=== PATIENT | female | born 1960 | race Caucasian/White ===

== ENCOUNTER → 2018-03-22 08:16 | Outpatient (CLI) | payer BC, SELFPAY ==
--- NOTE | 2018-03-22 08:18 | DI.MG.S_ITS ---
BILATERAL DIGITAL SCREENING MAMMOGRAM 3D/2D WITH CAD: 03/22/2018 CLINICAL: Routine screening. Family history of breast cancer. Comparison is made to exams dated: 08/13/2016 mammogram - [facility], 03/19/2010 mammogram, and [facility]/17/[facility] The tissue of both breasts is heterogeneously dense. This may lower the sensitivity of mammography. Current study was also evaluated with a Computer Aided Detection (CAD) system. There is a high density asymmetry in the left breast posterior depth lateral region seen on the craniocaudal view only. No other significant masses, calcifications, or other findings are seen in either breast. IMPRESSION: INCOMPLETE: NEEDS ADDITIONAL IMAGING EVALUATION The high density asymmetry in the left breast is indeterminate. Additional views with possible ultrasound are recommended. This exam was interpreted at Station ID: [id number]. NOTE: For mammograms, a report in lay terms will be sent to the patient. Approximately 15% of breast malignancies will not be visualized mammographically. In the management of a palpable breast mass, a negative mammogram must not discourage biopsy of a clinically suspicious lesion. Electronically Signed By: Isaura alford/rustam:03/22/2018 08:55:05 letter sent: Additional Imaging Needed ACR BI-RADS Category 0: Incomplete 3340F
== END ==
PROVIDERS: Family Provider Internal Medicine; PCP Internal Medicine; Visit Provider Internal Medicine
DX: Z12.31 Encounter for screening mammogram for malignant neoplasm of breast (principal); Z80.3 Family history of malignant neoplasm of breast
CPT/HCPCS: 77063; 77067

== ENCOUNTER → 2018-04-28 09:27 | Outpatient (CLI) | payer BC, SELFPAY ==
--- NOTE | 2018-04-28 09:29 | DI.MG.S_ITS ---
UNILATERAL LEFT DIGITAL DIAGNOSTIC MAMMOGRAM 3D/2D WITH ADDITIONAL VIEWS: 04/28/2018 CLINICAL: Additional evaluation requested from prior study. Family history of breast cancer. Comparison is made to exams dated: 03/22/2018 mammogram, 08/13/2016 mammogram - [facility], and 03/19/2010 [facility]. The tissue of the left breast is heterogeneously dense. This may lower the sensitivity of mammography. The high density asymmetry in the left breast posterior depth lateral region seen on the craniocaudal view only is not seen in additional views. No other significant masses or calcifications are seen in the breast. IMPRESSION: BENIGN The left breast asymmetry seen on the screening mammogram likely respresents superimposed fibroglandular tissue and is benign. There is no mammographic evidence of malignancy. A 1 year screening mammogram is recommended. This exam was interpreted at Station ID: [id number]. NOTE: For mammograms, a report in lay terms will be sent to the patient. Approximately 15% of breast malignancies will not be visualized mammographically. In the management of a palpable breast mass, a negative mammogram must not discourage biopsy of a clinically suspicious lesion. Electronically Signed By: Isaura Gonzales M.D. lk/:04/28/2018 10:04:51 letter sent: Normal Exam ACR BI-RADS Category 2: Benign Finding(s) 3342F
[2018-04-28 10:38] LABS: Add Manual Diff / Slide Review NO; Basophils Percent Auto 0.7 % (0-2); Eosinophils Percent Auto 4.2 % (2-4); Hematocrit 40.7 % (36-46); Hemoglobin 13.9 g/dL (12.0-16.0); Lymphocytes Percent Auto 27.2 % (25-40); Mean Corpuscular HGB Conc 34.2 % (30-36); Mean Corpuscular Volume 90.8 fL (80-100); Monocytes Percent Auto 11.4 % (3-14); Neutrophils Absolute Auto 3600 /uL (3000-5900); Neutrophils Percent Auto 56.5 % (50-75); Platelet Count 380 X10^3/uL (150-400); Red Blood Cell Count 4.48 X10^6/uL (4.0-5.2); Red Cell Distribution Width 13.8 % (11.6-14.8); White Blood Cell Count 6.4 X10^3/uL (4.5-11.0)
[2018-04-28 10:57] LABS: Alanine Aminotransferase 23 IU/L (9-52); Albumin 4.3 g/dL (3.5-5.0); Albumin Globulin Ratio 1.5 (1.0-2.8); Alkaline Phosphatase 59 U/L (38-126); Aspartate Aminotransferase 21 IU/L (14-36); BUN Creatinine Ratio 23.3 (6-22); Bilirubin Total 0.5 mg/dL (0.2-1.3); Blood Urea Nitrogen 14 mg/dL (7-17); Calcium 9.4 mg/dL (8.4-10.2); Carbon Dioxide 31 mmol/L (22-32); Chloride 103 mmol/L (98-107); Cholesterol 153 mg/dL (140-199); Estimated Glomerular Filt Rate > 60.0 mL/min (>60); Globulin 2.8 g/dL (1.7-4.1); Glucose 92 mg/dL (70-100); HDL Cholesterol 50 mg/dL (40-60); HEMOLYSIS < 15 (0-50); LDL Cholesterol Calculated 89 mg/dL (<100); Potassium 4.2 mmol/L (3.4-5.1); Sodium 143 mmol/L (137-145); Total Protein 7.1 g/dL (6.3-8.2); Triglycerides 68 mg/dL (35-150)
[2018-04-28 12:24] LABS: TSH w/ Reflex to FT4 2.06 uIU/mL (0.47-4.68)
== END ==
PROVIDERS: Family Provider Internal Medicine; PCP Internal Medicine; Visit Provider Internal Medicine
DX: R92.8 Other abnormal and inconclusive findings on diagnostic imaging of breast (principal); Z80.3 Family history of malignant neoplasm of breast; Z00.00 Encounter for general adult medical examination without abnormal findings
CPT/HCPCS: 36415; 77065; 80053; 80061; 84443; 85025; G0279

== ENCOUNTER → 2019-06-04 11:38 | Outpatient (CLI) | payer BC, SELFPAY ==
--- NOTE | 2019-06-04 | DI.MG.S_ITS ---
BILATERAL DIGITAL SCREENING MAMMOGRAM 3D/2D WITH CAD: 06/04/2019 CLINICAL: Routine screening. Family history of breast cancer. Comparison is made to exams dated: 03/22/2018 mammogram and 08/13/2016 mammogram - [facility]. The tissue of both breasts is heterogeneously dense. This may lower the sensitivity of mammography. Current study was also evaluated with a Computer Aided Detection (CAD) system. No significant masses, calcifications, or other findings are seen in either breast. There has been no significant interval change. IMPRESSION: NEGATIVE There is no mammographic evidence of malignancy. A 1 year screening mammogram is recommended. This exam was interpreted at Station ID: [id number]. NOTE: For mammograms, a report in lay terms will be sent to the patient. Approximately 15% of breast malignancies will not be visualized mammographically. In the management of a palpable breast mass, a negative mammogram must not discourage biopsy of a clinically suspicious lesion. Electronically Signed By: Reshma mirza/rustam:06/04/2019 17:12:42 letter sent: Normal Exam ACR BI-RADS Category 1: Negative 3341F
== END ==
PROVIDERS: PCP Internal Medicine; Visit Provider Internal Medicine
DX: Z12.31 Encounter for screening mammogram for malignant neoplasm of breast (principal); Z80.3 Family history of malignant neoplasm of breast
CPT/HCPCS: 77063; 77067

== ENCOUNTER → 2020-03-26 08:48 | Outpatient (CLI) | payer BC, SELFPAY ==
[2020-03-27 21:18] LABS: COVID19 Sendout Not Detected (Not Detect)
== END ==
PROVIDERS: PCP Internal Medicine; Visit Provider Nurse Practitioner
DX: Z11.59 Encounter for screening for other viral diseases (principal); R05 Cough
CPT/HCPCS: 87635

== ENCOUNTER → 2020-06-13 09:22 | Outpatient (CLI) | payer BC, SELFPAY ==
--- NOTE | 2020-06-13 | DI.MG.S_ITS ---
BILATERAL DIGITAL DIAGNOSTIC MAMMOGRAM 3D/2D: 06/13/2020 CLINICAL: Right breast itching. Comparison is made to exams dated: 06/04/2019 mammogram, 03/22/2018 mammogram, and 08/13/2016 mammogram - [facility]. The tissue of both breasts is heterogeneously dense. This may lower the sensitivity of mammography. No significant masses, calcifications, or other findings are seen in either breast. IMPRESSION: INCOMPLETE: NEEDS ADDITIONAL IMAGING EVALUATION There is no abnormality seen in the right breast to correspond with the area of clinical concern in the anterior depth, however, ultrasound is recommended. This exam was interpreted at Station ID: [id number]. NOTE: For mammograms, a report in lay terms will be sent to the patient. Approximately 15% of breast malignancies will not be visualized mammographically. In the management of a palpable breast mass, a negative mammogram must not discourage biopsy of a clinically suspicious lesion. Electronically Signed By: Payam north/rustam:06/13/2020 10:18:32 ACR BI-RADS Category 0: Incomplete 3340F
--- NOTE | 2020-06-13 | DI.US.S_ITS ---
LIMITED ULTRASOUND OF RIGHT BREAST: 06/13/2020 CLINICAL: Pt has itchy rt nipple for years , getting worse with time. Comparison is made to exams dated: 06/13/2020 mammogram, 06/04/2019 mammogram, and 04/28/2018 mammogram - [facility]. Real-time ultrasound of the right breast retroareolar was performed on the area of interest. No discrete cystic or solid mass lesion identified in the area of pruritus and skin changes in the anterior right breast. IMPRESSION: NEGATIVE There is no sonographic evidence of malignancy. There is no abnormality seen in the right breast to correspond with the area of clinical concern in the sub-areolar depth, however, clinical followup is recommended. A 1 year screening mammogram is recommended. This exam was interpreted at Station ID: [id number]. Electronically Signed By: Payam Denny M.D. ddconcepción/:06/13/2020 10:49:08 letter sent: Clinical Evaluation Ultrasound BI-RADS: 1 Negative
== END ==
PROVIDERS: PCP Internal Medicine; Referring Provider Internal Medicine; Visit Provider Internal Medicine
DX: R92.8 Other abnormal and inconclusive findings on diagnostic imaging of breast (principal); L29.8 Other pruritus
CPT/HCPCS: 76642; 77066; G0279

== ENCOUNTER → 2020-07-07 14:30 | Outpatient (CLI) | payer BC, SELFPAY ==
[2020-07-07 16:36] LABS: COVID19 -Nasal RAPID Negative (Negative)
== END ==
PROVIDERS: PCP Internal Medicine; Visit Provider Physician Assistant
DX: Z11.59 Encounter for screening for other viral diseases (principal)
CPT/HCPCS: 87635

== ENCOUNTER → 2020-07-08 15:03 | Outpatient (CLI) | payer BC, SELFPAY ==
--- NOTE | 2020-07-09 11:22 | DI.NM.S_ITS ---
DATE OF SERVICE: PROCEDURE: Exercise stress test. DATE: 09/07/2019 INDICATIONS: Chest pain and hypertension. EXERCISE TREADMILL TESTING: The patient underwent exercise stress test under the supervision of an attending staff. The patient walked on Holden protocol for 12 minutes and achieved 110% of target heart rate with normal blood pressure response. The patient achieved 12.8 METS of workload and functional aerobic impairment -73%. No chest pain or anginal symptoms. The patient finished the protocol. Baseline EKG revealed sinus rhythm. During stress, there were some nonspecific ST changes. However, no convincing ischemic changes. In early recovery patient has frequent PACs as well as some atrial couplets and very short run of SVT. No obvious atrial fibrillation seen. No ventricular tachycardia. CONCLUSION: Exercise stress test is negative for inducible ischemia. Excellent exercise tolerance. She walked on Holden protocol for 12 minutes with functional aerobic impairment -73%. PACs and short bursts of SVT during recovery without any obvious atrial fibrillation or sustained significant arrhythmias. Overall this is a low-risk exercise stress test. Cecy Dia - JOANN/adelina/pino doc#: [id number]/job#: [id number] dd: 07/08/2020 17:47:00 dt: 07/08/2020 18:14:00 DICTATING /COPIES TO: Desi Cid MD COPIES MNE: MIKAL;
== END ==
PROVIDERS: PCP Internal Medicine; Referring Provider Internal Medicine; Visit Provider Internal Medicine
DX: R07.9 Chest pain, unspecified (principal); I10 Essential (primary) hypertension
CPT/HCPCS: 93017

== ENCOUNTER → 2020-09-10 11:15 | Outpatient (CLI) | payer BC, SELFPAY ==
[2020-09-10 12:38] LABS: COVID19 -Nasal RAPID Negative (Negative)
== END ==
PROVIDERS: PCP Internal Medicine; Visit Provider Nurse Practitioner
DX: Z20.822 Contact with and (suspected) exposure to COVID-19 (principal)
CPT/HCPCS: 87635

== ENCOUNTER 2020-09-12 12:42 | Day surgery (SDC) | payer BC, SELFPAY ==
--- NOTE | 2020-09-12 11:54 | P.HP_ITS ---
History of Present Illness History of Present Illness Date Patient Seen: 09/12/20 Chief complaint: SCREENING COLONOSCOPY Narrative: 60 Years Old Female seen today for consideration of a screening colonoscopy. Last colonoscopy 2013, normal. There have been no lower GI symptoms suggesting disease such as change in bowel habits, bleeding, abdominal pain or anemia. There's been no family history of colon cancer or colon polyps. Overall health issues have been stable, including no major cardiac events for at least 6 weeks. 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 Pap: 2011 (Normal)- the patient denies any further vaginal exams or well exams Mammo: 2013 (normal)- BRCA testing negative The patient states she is not sexually active Colonoscopy: 2013 (normal) Past Surgical History: Breast lump biopsy (benign) 1998 - left side Colonoscopy, 2013, normal Family History: Reviewed history from 10/26/2019 and no changes required: Hypertension (father) Breast cancer and ovarian cancer (BRCA 1 positive: mother, sister, aunt, maternal grandmother) Stroke (MGM) Depression (sister) Family history of Melanoma Social History: 1 dog (Christi) No children non-drinker non-smoker Occupation: [employer] ([employer]) 2 drinks per day (1/2 bottle of wine per day) Alcohol drinks/day: 2/day Patient History Medical History (Updated 06/14/18 @ 15:01 by DAKOTA Angeles) Acne (~1969) Asthma (~1969) Cervical spine disease (~2013) Chicken pox (~1959) Eczema Family history of genetic disease Herpes (~1979) Mumps (~1959) Surgical History (Updated 01/21/18 @ 22:02 by Pina Lawton) Anesthesia Breast tumor (~1998) Family & Social History Family History (Updated 01/21/18 @ 21:59 by Pina Lawton) Grandfather No problems noted. Grandmother No problems noted. Mother No problems noted. Grandfather No problems noted. Grandmother No problems noted. Sister BRCA1 genetic carrier Sister BRCA1 genetic carrier Sister BRCA1 genetic carrier Cancer Tobacco & Substance use: Smoking Status Never smoker Meds Home Medications and Allergies Home Medications Medication Instructions Recorded Confirmed Type meloxicam 15 mg tablet 15 mg PO DAILY PRN #30 tab 01/23/18 09/12/20 Rx acyclovir 400 mg tablet 400 mg PO TID PRN #30 tab 03/21/18 09/12/20 Rx albuterol sulfate 90 mcg/actuation 2 puff INHALATION Q4H PRN #1 inh 06/05/18 09/12/20 Rx aerosol inhaler estradiol-levonorgestrel [Climara 1 patch TOPICAL WEEKLY 09/12/20 09/12/20 History Pro] Allergies Allergy/AdvReac Type Severity Reaction Status Date / Time egg [EGG] Allergy Mild ASTHMA Verified 03/26/20 08:55 aspirin AdvReac Mild Aspirin Verified 09/12/20 13:06 ibuprofen AdvReac Mild Asthma Verified 09/12/20 13:06 Review of Systems Review of Systems ROS: Yes All systems reviewed with the patient and are negative except as otherw ise documented Exam Narrative Exam Narrative: General: well developed, well nourished, in no acute distress, Head: normocephalic and atraumatic, Lungs: normal respiratory effort, clear bilaterally to auscultation, no wheezes rales or rhonchi. Heart: normal rate and regular rhythm, no murmurs, rubs, gallops, or clicks, Abdomen: abdomen soft and non-tender without masses, organomegaly, or abdominal wall hernias, bowel sounds positive. Skin: intact without suspicious lesions or rashes, Psych: alert and cooperative; normal mood and affect; normal attention span and concentration; cognition, remote and recent memory appear to be intact, Assessment & Plan Assessment & Plan narrative: 1. Screening for colon cancer Plan for colonoscopy. The nature and character of the procedure as well as anticipated results were discussed. The possibility of not completing the procedure was also discussed. Possible complications including aspiration pneumonia, bleeding, perforation and reaction to medications either for sedation or preparation and missed lesions were discussed. Questions were answered and proceeding to the colonoscopy was elected. Informed consent signed. I sincerely appreciate the referral allowing me to participate in this patient's care. Please contact me with any questions or concerns.
--- NOTE | 2020-09-12 11:55 | PM.OP.ENDO ---
Operative Date/Time/Diagnoses Date of procedure: 09/12/20 Procedure Notes Procedure in detail: ENDOSCOPIST: Shiela Cross MD Sedation RN: Freya Parikh RN Sedation start time: 2:06 p.m. Sedation end time: 2:33 p.m. PROCEDURE: Colonoscopy INDICATIONS: 1. Screening for colon cancer MEDICATION: Levsin 0.125 mg sublingual, incremental doses of Versed and fentanyl until appropriate level sedation achieved. ASA CLASS: 2 CECAL WITHDRAWAL TIME: 6 minutes COMPLICATIONS: None. EXTENT OF PROCEDURE: Cecum. QUALITY OF PREP: Good with portions of liquid stool. PROCEDURE: Prior to insertion of the colonoscope, a digital rectal examination was accomplished with circumferential palpation of the distal rectal mucosa without significant findings being noted. The high-definition colonoscope was passed into the rectum in the usual fashion and advanced over to the cecum without difficulty. The ileocecal valve, appendiceal stoma, and medial wall all could be inspected and no abnormalities were seen. ASCENDING COLON: As the colonoscope was withdrawn, care was taken to expose and inspect the haustral folds and no abnormalities were seen. HEPATIC FLEXURE: Normal, no polyps, diverticula or other abnormalities. TRANSVERSE COLON: Normal, no polyps, diverticula or other abnormalities. DESCENDING COLON: Normal, no polyps, diverticula or other abnormalities. SIGMOID COLON: Normal, no polyps, diverticula or other abnormalities. RECTUM: Normal. J maneuver was produced. There was no significant perianal disease. The J maneuver was broken. The remainder of the rectum was inspected and there was no external hemorrhoid disease. The scope was withdrawn. IMPRESSION: 1. Normal colonoscopy PLAN: 1. Repeat colonoscopy in 10 years. The possibility of a missed lesion including a malignancy has been discussed with the patient previously. Potential alarm symptoms have been discussed and should be reported immediately.
[2020-09-12 13:06] VITALS: BP 139/74; PULSE 75; RESP 14; TEMP 36.6; O2SAT 100
[2020-09-12] MEDS: HYOSCYAMINE 0.125 MG TABLET PO (13:09)
[2020-09-12] MEDS: LACTATED RINGERS 1,000 ML 200 ML IV (13:09)
[2020-09-12 13:20] VITALS: BMI 29.5
[2020-09-12] MEDS: fentaNYL 250 MCG/5 ML INJ IV (14:13)
[2020-09-12] MEDS: MIDAZOLAM 5 MG/5 ML VIAL IV (14:13)
[2020-09-12 14:37] VITALS: BP 118/63; PULSE 73; RESP 13; TEMP 36.4; O2SAT 99
[2020-09-12 14:41] VITALS: BP 113/65; PULSE 73; RESP 13; O2SAT 100
[2020-09-12 14:46] VITALS: BP 122/66; PULSE 63; RESP 14; O2SAT 100
[2020-09-12 14:59] VITALS: BP 116/70; PULSE 79; RESP 13; O2SAT 97
== END 2020-09-12 15:19 | disposition home or self-care (01) ==
PROVIDERS: PCP Internal Medicine; Referring Provider Internal Medicine; Visit Provider Student in an Organized Health Care Education/Training Program
PROC: 0DJD8ZZ Inspection of Lower Intestinal Tract, Via Natural or Artificial Opening Endoscopic (ICD-10-PCS; CPT 45378; principal; 2020-09-12 13:45)
DX: Z12.11 Encounter for screening for malignant neoplasm of colon (principal)
CPT/HCPCS: 45378; J2250; J3010

== ENCOUNTER → 2021-06-17 15:07 | Outpatient (CLI) | payer BC, SELFPAY ==
--- NOTE | 2021-06-17 15:07 | DI.MG.S_ITS ---
BILATERAL DIGITAL SCREENING MAMMOGRAM 3D/2D WITH CAD: 06/17/2021 CLINICAL: Routine screening. Family history of breast cancer. Comparison is made to exams dated: 06/13/2020 mammogram, 06/04/2019 mammogram, 04/28/2018 mammogram, and 03/22/2018 mammogram - [facility]. The tissue of both breasts is heterogeneously dense. This may lower the sensitivity of mammography. Current study was also evaluated with a Computer Aided Detection (CAD) system. No significant masses, calcifications, or other findings are seen in either breast. There has been no significant interval change. IMPRESSION: NEGATIVE There is no mammographic evidence of malignancy. A 1 year screening mammogram is recommended. This exam was interpreted at Station ID: [id number]. NOTE: For mammograms, a report in lay terms will be sent to the patient. Approximately 15% of breast malignancies will not be visualized mammographically. In the management of a palpable breast mass, a negative mammogram must not discourage biopsy of a clinically suspicious lesion. Electronically Signed By: Payam north/rustam:06/17/2021 16:04:08 letter sent: Normal Exam ACR BI-RADS Category 1: Negative 3341F
== END ==
PROVIDERS: PCP Internal Medicine; Referring Provider Internal Medicine; Visit Provider Internal Medicine
DX: Z12.31 Encounter for screening mammogram for malignant neoplasm of breast (principal); Z80.3 Family history of malignant neoplasm of breast
CPT/HCPCS: 77063; 77067

== ENCOUNTER → 2022-02-02 07:28 | Outpatient (CLI) | payer BC, SELFPAY ==
--- NOTE | 2022-02-02 | DI.NM.S_ITS ---
PROCEDURE: NM HIDA WITH CCK PHARMACEUTICAL: 5.2 mCi Tc-99m mebrofenin IV; 1.8 mcg CCK IV. INDICATIONS: Abdominal pain TECHNIQUE: Following intravenous administration of Tc-99m mebrofenin, sequential anterior abdominal images were obtained. To evaluate the contractile response of the gallbladder in response to Cholecystokinin (CCK), sincalide (0.02 ?g/kg) was administered by slow intravenous infusion approximately 60 minutes after the administration of the radiopharmaceutical. Sequential imaging was continued for 30 minutes after the start of CCK infusion. Gallbladder ejection fraction was calculated. COMPARISON: [facility], US, US ABDOMEN COMPLETE, 10/19/2021, 7:07. FINDINGS: Biliary scan: There is normal tracer uptake and excretion by the liver. There is normal visualization of the intrahepatic ducts, common bile duct, and gallbladder. There is normal tracer transit into the duodenum. CCK stimulation: There is poor contractile response of the gallbladder to CCK infusion. The calculated gallbladder ejection fraction is 30%; normal values are above 35%. The patient denied pain during CCK infusion. IMPRESSION: 1. Normal filling of gallbladder. No evidence for acute cholecystitis. 2. Poor contractile response of gallbladder to CCK stimulation. Dictated by: Miquel Madden M.D. on 02/02/2022 at 10:10 Approved by: Miquel Madden M.D. on 02/02/2022 at 10:15
== END ==
PROVIDERS: PCP Internal Medicine; Referring Provider Internal Medicine; Visit Provider Internal Medicine
DX: R10.9 Unspecified abdominal pain (principal)
CPT/HCPCS: 78227; A9537; J2805

== ENCOUNTER → 2022-07-29 08:30 | Outpatient (CLI) | payer BC, SELFPAY ==
--- NOTE | 2022-07-29 | DI.MG.S_ITS ---
BILATERAL DIGITAL SCREENING MAMMOGRAM 3D/2D WITH CAD: 07/29/2022 CLINICAL: Routine screening. Family history of breast cancer. Comparison is made to exams dated: 06/17/2021 mammogram, 06/13/2020 mammogram, and 06/04/2019 mammogram - [facility]. Both breasts are heterogeneously dense, which may obscure small masses (category c / 51-75% glandular tissue). Current study was also evaluated with a Computer Aided Detection (CAD) system. No significant masses, calcifications, or other findings are seen in either breast. There has been no significant interval change. IMPRESSION: NEGATIVE There is no mammographic evidence of malignancy. A 1 year screening mammogram is recommended. Based on Tyrer-Cuzick model (a risk assessment model), the patient's lifetime risk is 32.1% and her 10 year risk is 15.4%. If a patient has an elevated risk, a more comprehensive evaluation should be considered and/or a referral to a genetic counselor. The [place] [employer], [place] [employer], and NCCN Guidelines advise the consideration of Breast MRI as an adjunct to screening mammography in patients whose Lifetime risk to develop breast cancer is 20% or higher. This exam was interpreted at Station ID: [id number]. NOTE: For mammograms, a report in lay terms will be sent to the patient. Approximately 15% of breast malignancies will not be visualized mammographically. In the management of a palpable breast mass, a negative mammogram must not discourage biopsy of a clinically suspicious lesion. Electronically Signed By: Scott alvarez/rustam:07/29/2022 11:47:27 letter sent: Normal Exam ACR BI-RADS Category 1: Negative 3341F
== END ==
PROVIDERS: PCP Internal Medicine; Referring Provider Internal Medicine; Visit Provider Internal Medicine
DX: Z12.31 Encounter for screening mammogram for malignant neoplasm of breast (principal); Z80.3 Family history of malignant neoplasm of breast
CPT/HCPCS: 77063; 77067

== ENCOUNTER → 2022-07-30 14:18 | Outpatient (CLI) | payer BC, SELFPAY | PROVIDERS: PCP Internal Medicine; Referring Provider Internal Medicine; Visit Provider Internal Medicine | DX: Z13.820 Encounter for screening for osteoporosis (principal); Z78.0 Asymptomatic menopausal state | CPT/HCPCS: 77080 ==

== ENCOUNTER 2023-07-09 10:04 | Emergency (ER) | payer BC, SELFPAY ==
[2023-07-09] VITALS (12 sets, daily range): BP systolic 146–176; BP diastolic 72–86; PULSE 60–83; RESP 11–24; TEMP 36.6–36.8; O2SAT 96–99; BMI 31.6
--- NOTE | 2023-07-09 10:27 | DI.RAD.S_ITS ---
PROCEDURE: XR CHEST 1V INDICATIONS: chest pain TECHNIQUE: One view of the chest was acquired. COMPARISON: None. FINDINGS: Surgical changes and devices: None. Lungs and pleura: Linear scarring/atelectasis at left lung base is seen. No pleural effusions or pneumothorax. Mediastinum: Mediastinal contours appear normal. Heart size is normal. Bones and chest wall: No suspicious bony lesions. Overlying soft tissues appear unremarkable. IMPRESSION: Left basilar scarring/atelectasis. No focal infiltrate, pleural effusion or pneumothorax. Dictated by: Joe Kan M.D. on 07/09/2023 at 11:15 Approved by: Joe Kan M.D. on 07/09/2023 at 11:16
[2023-07-09 10:40] LABS: INR 1.1 (0.9-1.3); Prothrombin Time 12.2 SECONDS (9.4-12.5)
[2023-07-09 10:42] LABS: PTT Partial Thromboplastin Tim 31 SECONDS (25.1-36.5)
[2023-07-09 10:43] LABS: Alanine Aminotransferase 22 IU/L (<35); Albumin 4.3 g/dL (3.5-5.0); Albumin Globulin Ratio 1.4 (1.0-2.8); Alkaline Phosphatase 55 U/L (38-126); Aspartate Aminotransferase 29 IU/L (14-36); BUN Creatinine Ratio 27.7 (6-22); Bilirubin Total 0.8 mg/dL (0.2-1.3); Blood Urea Nitrogen 18 mg/dL (7-17); Calcium 10.1 mg/dL (8.4-10.2); Carbon Dioxide 29 mmol/L (22-32); Chloride 100 mmol/L (98-107); Creatine Kinase 105 U/L (30-135); Estimated Glomerular Filt Rate > 60 mL/min (>60); Globulin 3.1 g/dL (1.7-4.1); Glucose 107 mg/dL (80-110); HEMOLYSIS < 15 (0-50); Lipase 60 U/L (23-300); Magnesium 1.8 mg/dL (1.6-2.3); Potassium 3.8 mmol/L (3.4-5.1); Sodium 134 mmol/L (137-145); Total Protein 7.4 g/dL (6.3-8.2)
[2023-07-09 10:44] LABS: Add Manual Diff / Slide Review NO; Basophils Absolute Auto 100 /uL (0-100); Eosinophils Absolute Auto 200 /uL (0-450); Eosinophils Percent Auto 3.1 % (2-4); Hematocrit 41.3 % (36-46); Hemoglobin 13.9 g/dL (12.0-16.0); Lymphocytes Absolute Auto 2200 /uL (1100-4500); Lymphocytes Percent Auto 30.1 % (25-40); Mean Corpuscular HGB Conc 33.7 % (30-36); Mean Corpuscular Hemoglobin 30.9 PG (26-34); Mean Corpuscular Volume 91.7 fL (80-100); Monocytes Absolute Auto 900 /uL (0-900); Monocytes Percent Auto 12.8 % (3-14); Neutrophils Absolute Auto 3800 /uL (1500-7000); Platelet Count 346 X10^3/uL (150-400); Red Cell Distribution Width 13.8 % (11.6-14.8); White Blood Cell Count 7.2 X10^3/uL (4.5-11.0)
[2023-07-09 10:55] LABS: Troponin I < 0.012 ng/mL (0.01-0.034)
--- NOTE | 2023-07-09 11:13 | ED.CHESTPAIN ---
HPI - Chest Pain General Chief Complaint: Chest Pain Stated Complaint: sent by [facility]/ chest pains Time Seen by Provider: 07/09/23 11:12 Source: patient, RN notes reviewed and old records reviewed Mode of arrival: Ambulatory Limitations: no limitations History of Present Illness HPI narrative: 63-year-old female with history of hypertension, herpes, asthma, GERD with complaint of chest pain/pressure for the last several days. Patient comes in with complaint of substernal chest pressure that has been for several days but occasionally radiates over the left side of the chest to the shoulder. She states did have a little bit to her back. None to her neck and her belly. No syncope, no passing out or lightheadedness, she states she does have a history of reflux which is typically substernal but does not radiate elsewhere and states this is different. Denies any diaphoresis. No shortness of breath, no nausea no vomiting, no changes to bowel movements, no changes with urination, no new swelling in extremities in the feet. No fevers or chills. No cold, cough or congestion. Patient states she is on 25 mg of losartan daily, acyclovir as needed, Ventolin as needed she states she has not felt tight or wheezy your needed it, takes meloxicam PRN. Patient notes she does have an estrogen patch. Also notes that she flew back from [place] about 2 or 3 weeks ago after traveling. Denies any prior surgeries. States has allergic used to NSAIDs can tolerate some but not all. No tobacco, had quite a few alcoholic drinks on but states imbibes socially on the holidays otherwise not regularly. Occasional THC edibles, no IV or other recreational drugs. Her primary care is Dr. Murillo. Related Data Home Medications Medication Instructions Recorded Confirmed estradiol 0.045 mg-levonorgestrel 1 patch topical WEEKLY 09/12/20 07/09/23 0.015 mg/24hr weekly transderm patch (Climara Pro) estradiol 0.01% (0.1 mg/gram) 1 g vaginal 2XW 07/09/23 07/09/23 vaginal cream losartan 25 mg tablet 25 mg PO DAILY 07/09/23 07/09/23 Previous Rx's Medication Instructions Recorded meloxicam 15 mg tablet 15 mg PO DAILY PRN pain #30 tabs 01/23/18 acyclovir 400 mg tablet 400 mg PO TID PRN herpes #30 tabs 03/21/18 albuterol sulfate 90 mcg/actuation 2 puff inhalation Q4H PRN 06/05/18 aerosol inhaler (Ventolin HFA) shortness of breath or wheezing #1 inh Allergies Allergy/AdvReac Type Severity Reaction Status Date / Time egg [EGG] Allergy Mild ASTHMA Verified 07/09/23 09:51 naproxen AdvReac Severe Wheezing Verified 07/09/23 09:51 aspirin AdvReac Mild Aspirin Verified 07/09/23 09:51 ibuprofen AdvReac Mild Asthma Verified 07/09/23 09:51 Review of Systems Review of Systems ROS Unobtainable: All systems reviewed & are unremarkable except as noted in HPI and below Patient History Medical History Asthma (~1969) Cervical spine disease (~2013) Eczema Acne (~1969) Mumps (~1959) Chicken pox (~1959) Herpes (~1979) Family history of genetic disease Surgical History Anesthesia Breast tumor (~1998) Family History Grandfather No problems noted. Grandmother No problems noted. Mother No problems noted. Grandfather No problems noted. Grandmother No problems noted. Sister BRCA1 genetic carrier Sister BRCA1 genetic carrier Sister BRCA1 genetic carrier Cancer Social History household members: none Smoking Status: Never smoker Smoking Status: Never smoker alcohol intake frequency: a few times a week Substance Use Type: does not use Exam Narrative Exam Narrative: GENERAL: Alert and oriented x three, female in mild distress. HEENT: Head normocephalic, atraumatic, EOMI, pupils reactive, face symmetric, moist mucous membranes NECK: Supple, full range of motion CARDIOVASCULAR: Regular rate and rhythm without murmurs, rubs or gallops. No JVD. No swelling bilateral lower extremities. No reproducible chest pain. No rash or skin changes. RESPIRATORY: Breath sounds equal bilaterally, no wheezes rales or rhonchi. No tachypnea accessory muscle use. ABDOMEN: Soft, nontender. Normoactive bowel sounds all 4 quadrants. No guarding or rebound, rigidity, no mass : No CVA tenderness EXTREMITIES: Normal range of motion, no clubbing or edema. 2+ pulses bilateral lower extremities. Neurovascularly intact NEUROLOGICAL: Cranial nerves II through XII grossly intact. Moving all extremities SKIN: Warm, dry, no petechiae, no rashes or lesions. Initial Vital Signs Initial Vital Signs: Vital Signs Pulse Rate 80 07/09/23 10:22 Respiratory Rate 15 07/09/23 10:22 Blood Pressure 176/86 H 07/09/23 10:22 Pulse Oximetry 99 07/09/23 10:22 Scores HEART Score Heart Score history: Moderately Suspicious Heart Score EKG: Normal Heart Score Age: 45-64 years old Heart Score risk factors: 1-2 risk factors Heart Score troponin: < or = to normal limit Heart Score Total: 3 PERC Score Age greater than or equal to 50 years: Yes Heart rate greater than or equal to 100 bpm: No Room Air O2 Sat less than 95%: No Unilateral leg swelling: No Recent trauma or surgery: No Hemoptysis: No Prior PE or DVT: No Hormone Use: Yes (topical not oral.) Total PERC Score: 2 Course Orders Ordered: ED Orders 07/09/23 10:26 Complete Blood Count AUTO DIFF Stat Comprehensive Metabolic Panel Stat D Dimer Stat Lipase Stat Magnesium Stat PTT Partial Thromboplastin Jean Stat Prothrombin Time INR Stat Troponin & CK Cardiac Panel Stat 07/09/23 10:27 XR chest 1V Stat 07/09/23 10:40 EKG-12 Lead Stat 07/09/23 12:25 Trop I [Troponin I] Stat 07/09/23 12:31 EKG-12 Lead Stat Vital Signs Vital signs: Vital Signs - 8 hr 07/09/23 10:22 07/09/23 10:22 07/09/23 10:28 Temperature 97.8 F Pulse Rate 80 74 Respiratory Rate 15 16 Blood Pressure 176/86 H 161/82 H Pulse Oximetry 99 99 Oxygen Delivery Method Room Air 07/09/23 10:30 07/09/23 10:30 07/09/23 11:00 Temperature Pulse Rate 77 Respiratory Rate 11 L Blood Pressure 161/82 H 171/84 H Pulse Oximetry 99 Oxygen Delivery Method 07/09/23 11:00 07/09/23 11:30 07/09/23 11:31 Temperature Pulse Rate 83 69 Respiratory Rate 20 19 Blood Pressure 158/82 H Pulse Oximetry 99 99 Oxygen Delivery Method 07/09/23 11:31 07/09/23 11:45 07/09/23 11:45 Temperature Pulse Rate 77 65 Respiratory Rate 19 13 Blood Pressure 161/72 H Pulse Oximetry 98 96 Oxygen Delivery Method 07/09/23 12:00 07/09/23 12:00 07/09/23 12:30 Temperature Pulse Rate 60 62 Respiratory Rate 24 21 Blood Pressure 161/77 H Pulse Oximetry 98 98 Oxygen Delivery Method 07/09/23 12:31 07/09/23 12:31 07/09/23 13:00 Temperature Pulse Rate 70 65 Respiratory Rate 18 20 Blood Pressure 146/76 H Pulse Oximetry 97 98 Oxygen Delivery Method 07/09/23 13:00 07/09/23 13:12 Temperature 98.2 F Pulse Rate Respiratory Rate Blood Pressure 162/76 H Pulse Oximetry Oxygen Delivery Method MDM - Chest Pain Lab Data 07/09/23 10:26 07/09/23 10:26 Labs: Lab Results 07/09/23 07/09/23 Range/Units 10:26 12:25 WBC 7.2 (4.5-11.0) X10^3/uL RBC 4.50 (4.0-5.2) X10^6/uL Hgb 13.9 (12.0-16.0) g/dL Hct 41.3 (36-46) % MCV 91.7 (80-100) fL MCH 30.9 (26-34) PG MCHC 33.7 (30-36) % RDW 13.8 (11.6-14.8) % Plt Count 346 (150-400) X10^3/uL Neut % (Auto) 53.0 (50-75) % Lymph % (Auto) 30.1 (25-40) % Story % (Auto) 12.8 (3-14) % Eos % (Auto) 3.1 (2-4) % Baso % (Auto) 1.0 (0-2) % Neut # (Auto) 3800 (0072-5281) /uL Lymph # (Auto) 2200 (6936-4278) /uL Story # (Auto) 900 (0-900) /uL Eos # (Auto) 200 (0-450) /uL Baso # (Auto) 100 (0-100) /uL PT 12.2 (9.4-12.5) SECONDS INR 1.1 (0.9-1.3) APTT 31 (25.1-36.5) SECONDS D-Dimer 393 (<500) ng/ml Sodium 134 L (137-145) mmol/L Potassium 3.8 (3.4-5.1) mmol/L Chloride 100 (98-107) mmol/L Carbon Dioxide 29 (22-32) mmol/L BUN 18 H (7-17) mg/dL Creatinine 0.65 (0.52-1.04) mg/dL Estimated GFR > 60 (>60) mL/min BUN/Creatinine Ratio 27.7 H (6-22) Glucose 107 (80-110) mg/dL Calcium 10.1 (8.4-10.2) mg/dL Magnesium 1.8 (1.6-2.3) mg/dL Total Bilirubin 0.8 (0.2-1.3) mg/dL AST 29 (14-36) IU/L ALT 22 (<35) IU/L Alkaline Phosphatase 55 (38-126) U/L Total Creatine Kinase 105 (30-135) U/L Troponin I < 0.012 < 0.012 (0.01-0.034) ng/mL Total Protein 7.4 (6.3-8.2) g/dL Albumin 4.3 (3.5-5.0) g/dL Globulin 3.1 (1.7-4.1) g/dL Albumin/Globulin Ratio 1.4 (1.0-2.8) Lipase 60 (23-300) U/L Imaging Data Chest x-ray: Radiologist's Impression: Close Chest X-Ray (Signed) Joe Kan - 07/09/23 DEXA Result 07/30/22 Bone Densitometry 07/30/22 Mammogram Screening (Signed) Scott Eduardo - 07/29/22 Hepatobiliary Scan Nuclear Medicine (Signed) Shelley Madden - 02/02/22 Mammogram Screening (Signed) Payam Denny - 06/17/21 Telemetry Strips 09/12/20 Radiology Report (Cancelled) Desi Cid - 07/09/20 Mammogram Diagnostic (Signed) Payam Denny - 06/13/20 Breast Ultrasound (Signed) Payam Denny - 06/13/20 Mammogram Screening (Signed) Reshma Barnett - 06/04/19 Mammogram, Additional Views (Signed) Isaura Gonzales - 04/28/18 Mammogram Screening (Signed) Isaura Gonzales - 03/22/18 DI Result CC 07/19/17 Launch?[address] [address] XRay Report Signed Patient: Cecy Dia MR#: [id number] : 1960 Acct:[id number] Age/Sex: 63 / F Date of Service: 07/09/23 Loc: ED Accession Number: [id number] Procedure: XR chest 1V Ordering Provider: Selena Keller D.O. PROCEDURE: XR CHEST 1V INDICATIONS: chest pain TECHNIQUE: One view of the chest was acquired. COMPARISON: None. FINDINGS: Surgical changes and devices: None. Lungs and pleura: Linear scarring/atelectasis at left lung base is seen. No pleural effusions or pneumothorax. Mediastinum: Mediastinal contours appear normal. Heart size is normal. Bones and chest wall: No suspicious bony lesions. Overlying soft tissues appear unremarkable. IMPRESSION: Left basilar scarring/atelectasis. No focal infiltrate, pleural effusion or pneumothorax. Dictated by: Joe Kan M.D. on 07/09/2023 at 11:15 Approved by: Joe Kan M.D. on 07/09/2023 at 11:16 ECG Data Attestation: I personally reviewed and interpreted this ECG as follows: Prior ECG tracings: not available for review Interpretation: Sinus rhythm premature atrial complex, rate of 79 MA 136 QRS 84 QTC 442. No acute ST elevation or depression. No priors for comparison. EKG 2., sinus rhythm premature atrial complex, rate of 69 MA 144 QRS is 78 QTC 452. No acute ST changes or depression. MDM Narrative Medical decision making narrative: 63-year-old with history of hypertension, asthma with chest pain for several days to the left shoulder. Does have a history of reflux. CBC, CMP, coags, LFTs and troponin are negative. Repeat troponin is negative as well. Chest x-ray shows some left basilar atelectasis/scarring. Patient did have some long distance travel D-dimer is negative. She does not have any other risk factors prompting for CT angio at this time. Patient states she is currently asymptomatic with no acute or dynamic EKG changes appreciated. Patient felt safe for disposition home with follow-up. Discussed return precautions. Discharge Plan Departure Patient Disposition: Home Clinical Impression: Chest pain Instructions: DI for Chest Pain Activity Restrictions/Additional Instructions: Follow-up with your physician for recheck and further workup as needed. Call to set up an appointment on Tuesday. Continue your home medications as prescribed. Please return for new or worsening chest pain or pressure, shortness of breath, sweatiness, lightheadedness or passing out, nausea or vomiting, new swelling in her extremities or other new or concerning changes. Prescriptions: No Action estradiol 0.01 % (0.1 mg/gram) cream 1 g vaginal 2XW losartan 25 mg tablet 25 mg PO DAILY acyclovir 400 mg tablet 400 mg PO TID PRN (Reason: herpes) Qty: 30 2RF albuterol sulfate [Ventolin HFA] 90 mcg/actuation HFA aerosol inhaler 2 puff INHALATION Q4H PRN (Reason: shortness of breath or wheezing) Qty: 1 3RF meloxicam 15 mg tablet 15 mg PO DAILY PRN (Reason: pain) Qty: 30 0RF Climara Pro 0.045-0.015 mg/24 hr patch weekly 1 patch topical WEEKLY Referrals: Stephie Murillo ARNP [Primary Care Provider] - Stand Alone Forms: Patient Portal/API
[2023-07-09 11:39] LABS: D Dimer 393 ng/ml (<500)
[2023-07-09 12:55] LABS: Troponin I < 0.012 ng/mL (0.01-0.034)
== END 2023-07-09 13:13 | disposition home or self-care (01) ==
PROVIDERS: Emergency Provider Emergency Medicine; PCP Internal Medicine
DX: R07.9 Chest pain, unspecified (principal); I49.1 Atrial premature depolarization
CPT/HCPCS: 36415; 71045; 80053; 82550; 83690; 83735; 84484; 85025; 85379; 85610; 85730; 93005; 93010; 99284

== ENCOUNTER → 2023-08-01 15:24 | Outpatient (CLI) | payer BC, SELFPAY ==
--- NOTE | 2023-08-01 | DI.MG.S_ITS ---
BILATERAL DIGITAL SCREENING MAMMOGRAM 3D/2D WITH CAD: 08/01/2023 CLINICAL: Routine screening. Family history of breast cancer. Comparison is made to exams dated: 07/29/2022 mammogram, 06/17/2021 mammogram, and 06/13/2020 [facility]. Both breasts are heterogeneously dense, which may obscure small masses (category c / 51-75% glandular tissue). Current study was also evaluated with a Computer Aided Detection (CAD) system. No significant masses, calcifications, or other findings are seen in either breast. There has been no significant interval change. IMPRESSION: NEGATIVE There is no mammographic evidence of malignancy. A 1 year screening mammogram is recommended. Based on Tyrer-Cuzick model (a risk assessment model), the patient's lifetime risk is 30.2% and her 10 year risk is 14.5%. If a patient has an elevated risk, a more comprehensive evaluation should be considered and/or a referral to a genetic counselor. The [place] [employer], [place] [employer], and NCCN Guidelines advise the consideration of Breast MRI as an adjunct to screening mammography in patients whose Lifetime risk to develop breast cancer is 20% or higher. This exam was interpreted at Station ID: [id number]. NOTE: For mammograms, a report in lay terms will be sent to the patient. Approximately 15% of breast malignancies will not be visualized mammographically. In the management of a palpable breast mass, a negative mammogram must not discourage biopsy of a clinically suspicious lesion. Electronically Signed By: Wili magaña/rustam:08/02/2023 07:36:06 letter sent: Normal Exam ACR BI-RADS Category 1: Negative [id number]
== END ==
PROVIDERS: PCP Internal Medicine; Referring Provider Internal Medicine; Visit Provider Internal Medicine
DX: Z12.31 Encounter for screening mammogram for malignant neoplasm of breast (principal); Z80.3 Family history of malignant neoplasm of breast
CPT/HCPCS: 77063; 77067

== ENCOUNTER → 2023-08-07 10:47 | Outpatient (CLI) | payer BC, SELFPAY | PROVIDERS: PCP Internal Medicine; Visit Provider Nurse Practitioner Family | DX: R31.9 Hematuria, unspecified (principal) | CPT/HCPCS: 87086 ==

== ENCOUNTER → 2024-10-01 | Outpatient (CLI) | payer BC, SELFPAY ==
--- NOTE | 2024-10-01 14:54 | DI.MG.S_ITS ---
BILATERAL DIGITAL SCREENING MAMMOGRAM 3D/2D WITH CAD: 10/01/2024 CLINICAL: Routine screening. Family history of breast cancer. Comparison is made to exams dated: 08/01/2023 mammogram, 07/29/2022 mammogram, and 06/17/2021 mammogram - [facility]. The breasts are heterogeneously dense, which may obscure small masses (category c / 51-75% glandular tissue). Current study was also evaluated with a Computer Aided Detection (CAD) system. No significant masses, calcifications, or other findings are seen in either breast. There has been no significant interval change. IMPRESSION: NEGATIVE There is no mammographic evidence of malignancy. A 1 year screening mammogram is recommended. Based on Tyrer-Cuzick model (a risk assessment model), the patient's lifetime risk is 29.2% and her 10 year risk is 14.5%. If a patient has an elevated risk, a more comprehensive evaluation should be considered and/or a referral to a genetic counselor. The [place] [employer], [employer] [place] [employer], and NCCN Guidelines advise the consideration of Breast MRI as an adjunct to screening mammography in patients whose Lifetime risk to develop breast cancer is 20% or higher. This exam was interpreted at Station ID: [id number]. NOTE: For mammograms, a report in lay terms will be sent to the patient. Approximately 15% of breast malignancies will not be visualized mammographically. In the management of a palpable breast mass, a negative mammogram must not discourage biopsy of a clinically suspicious lesion. Electronically Signed By: Wili magaña/rustam:10/02/2024 06:49:55 letter sent: Normal Exam ACR BI-RADS Category 1: Negative
== END ==
LOC: MAMMO 14:53
PROVIDERS: PCP Internal Medicine; Referring Provider Internal Medicine; Visit Provider Internal Medicine
DX: Z12.31 Encounter for screening mammogram for malignant neoplasm of breast (principal); Z80.3 Family history of malignant neoplasm of breast; R92.333 Mammographic heterogeneous density, bilateral breasts
CPT/HCPCS: 77063; 77067

== ENCOUNTER → 2024-10-15 12:00 | Outpatient (CLI) | payer BC, SELFPAY ==
--- NOTE | 2024-10-15 12:05 | DI.RAD.S_ITS ---
PROCEDURE: XR SHOULDER LT MIN 2V INDICATIONS: Pain in left shoulder TECHNIQUE: 3 views of the shoulder were acquired. COMPARISON: None. FINDINGS: Bones: No fractures or dislocations. There is moderate glenohumeral joint space narrowing with marginal osteophytosis. Advanced hypertrophic acromioclavicular arthropathy and joint space narrowing noted. No suspicious bony lesions. Visualized ribs appear intact. Soft tissues: No suspicious soft tissue calcifications. IMPRESSION: Degenerative change of the glenohumeral and acromioclavicular joints without evidence of acute osseous abnormality. Dictated by: Juancarlos Maurice M.D. on 10/16/2024 at 5:16 Approved by: Juancarlos Maurice M.D. on 10/16/2024 at 5:17
== END ==
PROVIDERS: PCP Internal Medicine; Referring Provider Emergency Medicine Sports Medicine; Visit Provider Emergency Medicine Sports Medicine
DX: M25.512 Pain in left shoulder (principal); G89.29 Other chronic pain
CPT/HCPCS: 73030

== ENCOUNTER → 2025-05-15 10:43 | Outpatient (CLI) | payer MEDICARE, BC, SELFPAY ==
--- NOTE | 2025-05-15 | DI.RAD.S_ITS ---
PROCEDURE: XR LUMBAR SPINE 2-3V INDICATIONS: PAIN TECHNIQUE: 3 views of the lumbar spine were acquired. COMPARISON: None. FINDINGS: Lumbar spine curvature and alignment: Mild dextroscoliotic curve lower thoracic and lumbar spine appreciated. Bones: Minimal chronic wedging of the visualized lower thoracic vertebral bodies T9 through L1 appreciated. Disc spaces: Mild degenerative disc disease T9-10 through through L2-3 with moderate L3-4 mild L4-5 and L5-S1 degenerative disc disease. There is moderate L5-S1 degenerative facet disease. Soft tissues: No soft tissue swelling, calcification or mass. IMPRESSION: Degeneration Minimal chronic wedging T9 through L1 vertebral bodies. Suspect osteoporosis. Consider repeat DEXA scan Dictated by: Bhupendra Devries M.D. on 05/16/2025 at 13:42 Approved by: Bhupendra Devries M.D. on 05/16/2025 at 13:44
--- NOTE | 2025-05-15 | DI.RAD.S_ITS ---
PROCEDURE: XR HIP W PEL IF DONE RT 2V INDICATIONS: PAIN TECHNIQUE: Two views of the hip were acquired. COMPARISON: [facility], CR, HIPBILAT 3TO4V W PEL IF PERFD, 01/05/2016, 9:35. FINDINGS: Bones: There are no osseous abnormalities. SI and hip joints: Normal in width and alignment without arthritic change Soft tissues: No soft tissue swelling, calcification or mass. IMPRESSION: Normal pelvis Dictated by: Bhupendra Devries M.D. on 05/16/2025 at 13:42 Approved by: Bhupendra Devries M.D. on 05/16/2025 at 13:42
== END ==
PROVIDERS: PCP Registered Nurse; Referring Provider Registered Nurse; Visit Provider Registered Nurse
DX: M51.34 Other intervertebral disc degeneration, thoracic region (principal); M25.551 Pain in right hip; M51.369 Other intervertebral disc degeneration, lumbar region without mention of lumbar back pain or lower extremity pain; M51.379 Other intervertebral disc degeneration, lumbosacral region without mention of lumbar back pain or lower extremity pain; M47.817 Spondylosis without myelopathy or radiculopathy, lumbosacral region
CPT/HCPCS: 72100; 73502

== ENCOUNTER → 2025-07-03 12:07 | Outpatient (CLI) | payer MEDICARE, BC, SELFPAY ==
--- NOTE | 2025-07-03 12:09 | DI.RAD.S_ITS ---
PROCEDURE: XR DEXA AXIAL SKELETON INDICATIONS: Osteoporosis Screening COMPARISON: [facility], CR, XR DEXA AXIAL SKELETON, 07/30/2022, 14:33. FINDINGS: Lumbar Spine: Bone mineral density 1.060 g/cm2, T score 0.1, normal, change from previous 1.2%. Left Femoral Neck: Bone mineral density 0.786 g/cm2, T score -0.6, normal, change from previous 1.8%. Left Hip: Bone mineral density 1.019 g/cm2, T score 0.6, normal, change from previous-0.4%. Fracture Risk Calculation (when applicable): 10-year fracture risk of a major osteoporotic fracture 7.4 percent and of a hip fracture 0.4 percent. (T score greater or equal to -1.0 to: NORMAL) (T score from -1.1 to -2.4: OSTEOPENIA) (T score less than or equal to -2.5: OSTEOPOROSIS) IMPRESSION: Normal bone mineral density; no elevated fracture risk. No significant changes in bone mineral density compared to prior. Follow-up guidelines as follows: Osteoporosis: Consider a repeat DEXA and Vertebral Fracture Assessment (VFA) exam in 2 years or sooner if medically necessary, to reassess this patient's status. Osteopenia: Consider a repeat DEXA in 2-3 years to reassess this patient's status, or if there is a new clinical indication. Normal: Consider a repeat DEXA in 5 years or sooner, or if there is a new clinical indication. All treatment decisions require clinical judgment and consideration of individual patient factors, including patient preferences, comorbidities, previous drug use, risk factors not captured in the FRAX model (e.g., frailty, falls, vitamin D deficiency, increased bone turnover, interval significant decline in bone density ) and possible under- or over-estimation of fracture risk by FRAX. In addition, the NOF Guide recommends that FDA-approved medical therapies be considered in postmenopausal women and men age >= 50 years with a: * Hip or vertebral (clinical or morphometric) fracture * T-score of <=-2.5 at the spine or hip * Ten-year fracture probability by FRAX of >= 3% for hip fracture or >=20% for major osteoporotic fracture. Dictated by: Reshma Barnett M.D. on 07/05/2025 at 22:34 Approved by: Reshma Barnett M.D. on 07/05/2025 at 22:35
== END ==
LOC: RAD 12:08
PROVIDERS: PCP Registered Nurse; Referring Provider Registered Nurse; Visit Provider Registered Nurse
DX: Z13.820 Encounter for screening for osteoporosis (principal); R93.7 Abnormal findings on diagnostic imaging of other parts of musculoskeletal system; Z78.0 Asymptomatic menopausal state
CPT/HCPCS: 77080

== ENCOUNTER → 2025-07-17 09:47 | Outpatient (CLI) | payer MEDICARE, BC, SELFPAY ==
--- NOTE | 2025-07-17 09:54 | DI.RAD.S_ITS ---
PROCEDURE: XR KNEE LT 3V INDICATIONS: Right Knee PAIN TECHNIQUE: 3 views of the knee were acquired. COMPARISON: None. FINDINGS: Bones: No fractures or dislocations. No suspicious bony lesions. Soft tissues: No joint effusion. No suspicious soft tissue calcifications. IMPRESSION: No acute bony abnormality or significant effusion. Dictated by: Jamaal Hayes M.D. on 07/17/2025 at 10:52 Approved by: Jamaal Hayes M.D. on 07/17/2025 at 10:52
== END ==
PROVIDERS: PCP Registered Nurse; Referring Provider Registered Nurse; Visit Provider Registered Nurse
DX: S83.8X2D Sprain of other specified parts of left knee, subsequent encounter (principal); X58.XXXD Exposure to other specified factors, subsequent encounter
CPT/HCPCS: 73562

== ENCOUNTER → 2025-07-21 15:42 | Outpatient (CLI) | payer MEDICARE, BC, SELFPAY ==
--- NOTE | 2025-07-21 15:44 | DI.MRI.S_ITS ---
PROCEDURE: MR THORACIC SPINE WO CON INDICATIONS: Pain TECHNIQUE: Noncontrast sagittal T1 spine echo and T2 fast spin echo, sagittal STIR, and T2 fast spin echo through the thoracic spine. COMPARISON: None. FINDINGS: Image quality: Excellent. Some images are limited by patient motion or other artifacts. Left T6-7, T7-8 and most notably T8-9 left-sided foraminal, perineural cysts the largest measuring up to 1.5 cm diameter. Similarly at T10-T11 on the right side 1.2 cm. Moderate degenerative changes throughout the thoracic spine with degenerative disc disease, osteophytes, costovertebral and facet hypertrophic changes without central stenosis. No MR evidence of fracture or subluxation. No abnormal bone edema. No focal osseous lesion. Incidental note is made of multiple bilateral renal cyst partially imaged on this thoracic spine exam the largest on the right measuring up to 3.2 cm no gross hydronephrosis. Descending aorta within normal limits in size. IMPRESSION: Degenerative changes as discussed above. Bilateral foraminal, perineural cysts. Dictated by: Toby Garcia M.D. on 07/24/2025 at 9:10 Approved by: Toby Garcia M.D. on 07/24/2025 at 9:28
== END ==
LOC: MRI 15:43
PROVIDERS: PCP Registered Nurse; Referring Provider Registered Nurse; Visit Provider Registered Nurse
DX: S22.000D Wedge compression fracture of unspecified thoracic vertebra, subsequent encounter for fracture with routine healing (principal); G96.191 Perineural cyst; M47.814 Spondylosis without myelopathy or radiculopathy, thoracic region; N28.1 Cyst of kidney, acquired; M51.34 Other intervertebral disc degeneration, thoracic region; X58.XXXD Exposure to other specified factors, subsequent encounter
CPT/HCPCS: 72146

== ENCOUNTER → 2025-07-23 19:39 | Outpatient (CLI) | payer MEDICARE, BC, SELFPAY ==
--- NOTE | 2025-07-23 19:43 | DI.MRI.S_ITS ---
PROCEDURE: MR LUMBAR SPINE WO CON INDICATIONS: Radiculopathy, lumbar region TECHNIQUE: Noncontrast sagittal T1 spin echo and T2 fast echo, sagittal STIR, and T2 fast spin echo through the lumbar spine. In cases with scoliosis, additional coronal T2 fast spin echo may be performed. COMPARISON: [facility], MR, MR THORACIC SPINE WO CON, 07/21/2025, 16:14. FINDINGS: Image quality: Excellent. Alignment and Curvature: There is normal bony alignment. Bone Marrow: Marrow is of normal overall signal. Minimal reactive endplate changes are present at L1-2, L2-3. No acute vertebral body compression fractures. Spinal Cord: Conus medullaris terminates at the L1 level. Visualized cord demonstrates normal signal and size. 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 Paraspinous Soft Tissues: No paravertebral masses. Increased T2 signal is present within the kidneys bilaterally consistent with simple cysts. Discs: Multilevel disc desiccation overall moderate and most severe from L1-2 through L3-4. T12-L1: Mild disc bulge without spinal stenosis. Moderate bilateral foraminal narrowing, left greater than right with facet and ligamentum flavum hypertrophy. L1-L2: Mild disc bulge without spinal stenosis. Moderate bilateral foraminal narrowing with facet and ligamentum flavum hypertrophy, left greater than right. L2-L3: Mild disc bulge with minimal canal narrowing. [id number] right and moderate left foraminal narrowing with facet and ligamentum flavum hypertrophy. L3-L4: Mild disc bulge without spinal stenosis. Moderate to severe bilateral foraminal narrowing with facet and ligamentum flavum hypertrophy. L4-L5: Mild disc bulge without spinal stenosis. There is appearance of possible small extruded fragment measuring approximately 5 mm between the vertebral body and anterior facet joint on the right at the lateral recess. It is causing moderate compromise of the left lateral recess as well as severe proximal right foraminal narrowing. L5-S1: Mild disc bulge without spinal stenosis. Minimal bilateral foraminal narrowing with facet and ligamentum flavum hypertrophy. IMPRESSION: Multilevel disc bulges. Disc bulge with appearance of extruded fragment or less likely anterior facet joint cyst at L4-5. It is causing compromise of the right lateral recess as well as proximal foramina as described above. Dictated by: Sharron Walters M.D. on 07/24/2025 at 9:53 Approved by: Sharron Walters M.D. on 07/24/2025 at 10:00
== END ==
LOC: MRI 19:41
PROVIDERS: PCP Registered Nurse; Referring Provider Registered Nurse; Visit Provider Registered Nurse
DX: M51.16 Intervertebral disc disorders with radiculopathy, lumbar region (principal); M51.17 Intervertebral disc disorders with radiculopathy, lumbosacral region
CPT/HCPCS: 72148